=== PATIENT | female | born 1985 | race Caucasian/White ===

== ENCOUNTER 2020-11-20 21:00 | Emergency (ER) | payer BC, SELFPAY ==
[2020-11-20] VITALS (12 sets, daily range): BP systolic 116–133; BP diastolic 65–74; PULSE 73–89; RESP 15–16; TEMP 36.8; O2SAT 97–100; BMI 25.8
[2020-11-20] MEDS: ONDANSETRON 4 MG/2 ML INJ IV (21:27)
[2020-11-20] MEDS: LACTATED RINGERS 1,000 ML 1000 ML IV (21:27)
[2020-11-20 21:42] LABS: Add Manual Diff / Slide Review NO; Basophils Absolute Auto 0 /uL (0-100); Basophils Percent Auto 0.6 % (0-2); Eosinophils Absolute Auto 0 /uL (0-450); Eosinophils Percent Auto 0.8 % (2-4); Hematocrit 36.3 % (36-46); Hemoglobin 11.9 g/dL (12.0-16.0); Lymphocytes Absolute Auto 2600 /uL (1100-4500); Lymphocytes Percent Auto 48.8 % (25-40); Mean Corpuscular HGB Conc 32.7 % (30-36); Mean Corpuscular Volume 85.6 fL (80-100); Monocytes Absolute Auto 800 /uL (0-900); Monocytes Percent Auto 14.6 % (3-14); Neutrophils Absolute Auto 1900 /uL (1500-7000); Neutrophils Percent Auto 35.2 % (50-75); Platelet Count 192 X10^3/uL (150-400); Red Blood Cell Count 4.24 X10^6/uL (4.0-5.2); Red Cell Distribution Width 13.7 % (11.6-14.8); White Blood Cell Count 5.3 X10^3/uL (4.5-11.0)
[2020-11-20 21:49] LABS: Alanine Aminotransferase 16 IU/L (<35); Albumin 4.4 g/dL (3.5-5.0); Alkaline Phosphatase 57 U/L (38-126); Aspartate Aminotransferase 29 IU/L (14-36); Bilirubin Total 0.5 mg/dL (0.2-1.3); Blood Urea Nitrogen 18 mg/dL (7-17); Calcium 9.7 mg/dL (8.4-10.2); Carbon Dioxide 25 mmol/L (22-32); Chloride 107 mmol/L (98-107); Estimated Glomerular Filt Rate > 60.0 mL/min (>60); Globulin 4.4 g/dL (1.7-4.1); Glucose 125 mg/dL (70-100); HEMOLYSIS < 15 (0-50); Magnesium 1.9 mg/dL (1.6-2.3); Potassium 3.8 mmol/L (3.4-5.1); Sodium 139 mmol/L (137-145); Total Protein 8.8 g/dL (6.3-8.2)
--- NOTE | 2020-11-20 22:06 | ED.NAVMDI ---
HPI - Nausea/Vomiting/Diarrhea General Chief complaint: Syncope Stated complaint: nausea,lightheaded,cyst on left ovary Time Seen by Provider: 11/20/20 21:03 Source: patient Mode of arrival: Ambulatory Limitations: no limitations History of Present Illness HPI Narrative: 35-year-old female nonsmoker with history of rheumatoid arthritis and a recently diagnosed left ovarian cyst presents with her significant other and a chief complaint of a relatively sudden onset of near-syncope, severe nausea without vomiting and palpitations. She states that she had been in her normal state of health throughout the course of the day and rather suddenly felt lightheaded with palpitations. She states that it was significantly worse upon standing and improved with rest. She denies any fever chills nor chest pain or shortness of breath. Her menstrual cycle started 2 days ago and is normal for her but it is the 1st 1 in some time as she has had some alterations in her hormone replacement. Related Data Home Medications Medication Instructions Recorded Confirmed conjugated estrogens 0.625 mg 0.625 mg PO DAILY 06/10/20 06/10/20 tablet etanercept 50 mg/mL (1 mL) 50 mg SUBCUT QWEEK 06/10/20 06/10/20 subcutaneous syringe (Enbrel) progesterone micronized 100 mg 100 mg PO QAM 06/10/20 06/10/20 capsule Allergies Allergy/AdvReac Type Severity Reaction Status Date / Time cefaclor [From [facility]] Allergy Verified 06/10/20 18:09 Review of Systems Review of Systems Narrative: GENERAL: Denies chills, fatigue, malaise, fever, sweats. HEENT: Denies sinus pain, ear pain, sore throat, difficulty swallowing, dizziness. RESPIRATORY: Denies dyspnea, cough, wheezing, hemoptysis, sputum. CARDIOVASCULAR: See HPI GASTROINTESTINAL: Denies nausea, vomiting, abdominal pain, diarrhea, constipation, melena. : Denies dysuria, frequency, incontinence, hematuria, urinary retention. MUSCULOSKELETAL: denies weakness, joint pain, or bony pain SKIN: Denies rash, skin lesions, or other NEUROLOGIC: Denies weakness, headache, numbness, change in speech, confusion, seizures, incoordination. PSYCHIATRIC: No concerning psychosocial issues. 12 point review of systems is negative except for those stated above Patient History Medical History No active medical problems Social History Smoking Status: Never smoker Smoking Status: Never smoker alcohol intake frequency: 0-2 drinks per day Alcohol type: beer Substance Use Type: does not use Exam Narrative Exam Narrative: GENERAL: [35] year old patient appears stated age. Well-developed patient, in mild distress. HEAD: Atraumatic. Normocephalic. EYES: Pupils equal round and reactive. Extraocular motions intact. No scleral icterus. No injection or drainage. ENT: Nose without bleeding, purulent drainage. Throat without erythema, tonsillar hypertrophy or exudate. Airway patent. NECK: Trachea midline. Non tender CARDIOVASCULAR: Regular rate and rhythm without murmurs, gallops, or rubs. RESPIRATORY: Clear to auscultation. Breath sounds equal bilaterally. No wheezes, rales, or rhonchi. GASTROINTESTINAL: Abdomen soft, non-tender, nondistended. EXTREMITIES: No edema or joint tenderness. BACK: Nontender without deformity or crepitance. No flank tenderness. NEURO: AOx3. SKIN: No rash or erythema of visible areas Initial Vital Signs Initial Vital Signs: Vital Signs Temperature 98.2 F 11/20/20 21:03 Pulse Rate 88 11/20/20 21:03 Respiratory Rate 16 11/20/20 21:03 Blood Pressure 132/68 11/20/20 21:03 Pulse Oximetry 97 11/20/20 21:03 Course Orders Ordered: ED Orders 11/20/20 21:15 Complete Blood Count AUTO DIFF Stat Comprehensive Metabolic Panel Stat D Dimer Stat Magnesium Stat 11/20/20 22:21 CT angio chest PE protocol Stat Discontinued Medications Lactated Ringer's (Lactated Ringers) 1,000 mls @ 1,000 mls/hr IV BOLUS ONE Stop: 11/20/20 22:20 Last Infusion: 11/20/20 22:56 Dose: 0 mls/hr Documented by: Admin: 11/20/20 21:27 Dose: 1,000 mls/hr Documented by: ATAYLAVTAR Ondansetron HCl (Ondansetron 4 Mg/2 Ml Inj) 4 mg IV NOW ONE Stop: 11/20/20 21:22 Last Admin: 11/20/20 21:27 Dose: 4 mg Documented by: ATAYLOR Ondansetron HCl (Ondansetron 4 Mg Odt Prepack) 1 bottle MISC SEEINSTR ONE Stop: 11/21/20 00:30 Last Admin: 11/21/20 00:45 Dose: 1 bottle Documented by: DERRICK Reevaluation(s) Reevaluation #1: Patient has significant improvement and is essentially asymptomatic at this point after above-stated therapies Time: 22:26 Vital Signs Vital signs: Vital Signs - 8 hr 11/20/20 21:03 11/20/20 21:09 11/20/20 21:30 Temperature 98.2 F Pulse Rate 88 87 81 Pulse Rate [Orthostatic Lying] Pulse Rate [Orthostatic Sitting] Pulse Rate [Orthostatic Standing] Respiratory Rate 16 16 Blood Pressure 132/68 Blood Pressure [Orthostatic Lying] Blood Pressure [Orthostatic Sitting] Blood Pressure [Orthostatic Standing] Pulse Oximetry 97 100 100 11/20/20 21:34 11/20/20 22:00 11/20/20 22:57 Temperature Pulse Rate 78 78 89 Pulse Rate [Orthostatic Lying] Pulse Rate [Orthostatic Sitting] Pulse Rate [Orthostatic Standing] Respiratory Rate 15 16 Blood Pressure 116/67 127/67 Blood Pressure [Orthostatic Lying] Blood Pressure [Orthostatic Sitting] Blood Pressure [Orthostatic Standing] Pulse Oximetry 100 100 100 11/20/20 22:58 11/20/20 23:00 11/20/20 23:30 Temperature Pulse Rate 79 73 74 Pulse Rate [Orthostatic Lying] Pulse Rate [Orthostatic Sitting] Pulse Rate [Orthostatic Standing] Respiratory Rate Blood Pressure 133/74 128/70 124/65 Blood Pressure [Orthostatic Lying] Blood Pressure [Orthostatic Sitting] Blood Pressure [Orthostatic Standing] Pulse Oximetry 100 100 99 11/20/20 23:56 11/20/20 23:58 11/20/20 23:59 Temperature Pulse Rate 75 74 73 Pulse Rate [Orthostatic Lying] Pulse Rate [Orthostatic Sitting] Pulse Rate [Orthostatic Standing] Respiratory Rate Blood Pressure 122/72 127/69 123/67 Blood Pressure [Orthostatic Lying] Blood Pressure [Orthostatic Sitting] Blood Pressure [Orthostatic Standing] Pulse Oximetry 99 100 100 11/21/20 00:00 11/21/20 00:06 11/21/20 00:30 Temperature Pulse Rate 78 69 Pulse Rate [Orthostatic Lying] 74 Pulse Rate [Orthostatic Sitting] 68 Pulse Rate [Orthostatic Standing] 63 Respiratory Rate Blood Pressure 114/68 116/76 Blood Pressure [Orthostatic Lying] 122/72 Blood Pressure [Orthostatic Sitting] 127/69 Blood Pressure [Orthostatic Standing] 123/67 Pulse Oximetry 100 MDM - Nausea/Vomiting/Diarrhea Lab Data Result diagrams: 11/20/20 21:15 11/20/20 21:15 Labs: Lab Results 11/20/20 11/20/20 11/20/20 Range/Units 21:15 21:15 21:15 WBC 5.3 (4.5-11.0) X10^3/uL RBC 4.24 (4.0-5.2) X10^6/uL Hgb 11.9 L (12.0-16.0) g/dL Hct 36.3 (36-46) % MCV 85.6 (80-100) fL MCH 28.0 (26-34) PG MCHC 32.7 (30-36) % RDW 13.7 (11.6-14.8) % Plt Count 192 (150-400) X10^3/uL Neut % (Auto) 35.2 L (50-75) % Lymph % (Auto) 48.8 H (25-40) % [place] % (Auto) 14.6 H (3-14) % Eos % (Auto) 0.8 L (2-4) % Baso % (Auto) 0.6 (0-2) % Neut # (Auto) 1900 (4890-6406) /uL Lymph # (Auto) 2600 (7741-5840) /uL [place] # (Auto) 800 (0-900) /uL Eos # (Auto) 0 (0-450) /uL Baso # (Auto) 0 (0-100) /uL D-Dimer 344 H (<230) ng/mL Sodium 139 (137-145) mmol/L Potassium 3.8 (3.4-5.1) mmol/L Chloride 107 (98-107) mmol/L Carbon Dioxide 25 (22-32) mmol/L BUN 18 H (7-17) mg/dL Creatinine 0.72 (0.52-1.04) mg/dL Estimated GFR > 60.0 (>60) mL/min BUN/Creatinine Ratio 25.0 H (6-22) Glucose 125 H (70-100) mg/dL Calcium 9.7 (8.4-10.2) mg/dL Magnesium 1.9 (1.6-2.3) mg/dL Total Bilirubin 0.5 (0.2-1.3) mg/dL AST 29 (14-36) IU/L ALT 16 (<35) IU/L Alkaline Phosphatase 57 (38-126) U/L Total Protein 8.8 H (6.3-8.2) g/dL Albumin 4.4 (3.5-5.0) g/dL Globulin 4.4 H (1.7-4.1) g/dL Albumin/Globulin Ratio 1.0 (1.0-2.8) Point of Care Testing Test Results Negative Urine Dip Bedside Urine Glucose Negative Bedside Urine Bilirubin - Negative Bedside Urine Ketone - Negative Urine Specific [place] 1.010 Bedside Urine Occult Blood - Negative Bedside Urine pH 6.0 Bedside Urine Protein - Negative Bedside Urine Urobilinogen - Negative Bedside Urine Nitrite - Negative Bedside Urine Leukocytes - Negative Esterase ECG Data Interpretation: EKG is normal sinus rhythm rate [90 ] and free of any signs of ischemia or ectopy. No ST segmental elevation or depression. No T wave inversions MDM Narrative Medical decision making narrative: Multiple diagnoses considered including arrhythmia versus dehydration versus vasovagal versus pulmonary embolism versus anemia. PE thought unlikely given lack of findings on CT angiogram. Electrolyte abnormality and anemia considered unlikely given lack of findings on imaging. Dehydration considered a potential component given improvement with fluids, and initial orthostatic complaint. Return precautions given and questions answered to her apparent satisfaction Discharge Plan Departure Patient Disposition: Home Clinical Impression: Near syncope Instructions: DI for Syncope in Adults (Fainting) Activity Restrictions/Additional Instructions: *You have been diagnosed with [near syncope, likely a combination of dehydration and vagal response. Your physical exam, labs, CT scan and EKG are very reassuring.] *What to do: *Please continue to take your regular medications as directed. [ ] New medication prescriptions sent to your pharmacy: [ ] [ ] New medication written as a paper prescription [x ] No new medications given *Please follow up with your primary care provider in 2-3 days, call for an appointment. Let them know you were seen in the Emergency Department and that we ask that you be seen in follow up. We will electronically transmit a record of today's note if your PCP is in our system *If you do not have a primary care provider please contact the [facility] Resource line at [phone]. They will ask some questions about your medical history and help get you set up with a doctor in the community. *Return to Emergency Department if you should have any new, worsening or concerning symptoms, such as [fever greater than 101 F, shaking chills, worsening pain, persistent vomiting or other bothersome symptoms] Prescriptions: No Action Enbrel 50 mg/mL (1 mL) syringe 50 mg SUBCUT QWEEK RF: 0 progesterone micronized 100 mg capsule 100 mg PO QAM RF: 0 conjugated estrogens 0.625 mg tablet 0.625 mg PO DAILY RF: 0 Referrals: Miscellaneous,Doctor, MD [Primary Care Provider] -
[2020-11-20 22:16] LABS: D Dimer 344 ng/mL (<230)
--- NOTE | 2020-11-20 22:21 | DI.CT.S_ITS ---
PROCEDURE: CT ANGIO CHEST PE PROTOCOL INDICATIONS: palpitations, near syncope, hormone replacement, Ddimer up TECHNIQUE: After the administration of intravenous contrast, 2 mm thick sections acquired from the pulmonary apices to the posterior costophrenic angles. 3-dimensional maximum intensity projection (MIP) coronal and sagittal reformats were then acquired through the thorax. For radiation dose reduction, the following was used: automated exposure control, adjustment of mA and/or kV according to patient size. COMPARISON: None. FINDINGS: Image quality: Excellent. Pulmonary arteries: Pulmonary arteries are normal in size, and demonstrate no intraluminal filling defects to suggest central pulmonary embolism. Lungs and pleura: Atelectasis noted in the dependent portions of the lungs. No pleural effusions or pneumothorax. Central and peripheral airways are patent. Mediastinum: Heart size is normal, without pericardial effusion. No mediastinal or hilar adenopathy. Probable residual thymic tissue. Thoracic aorta is normal in caliber and enhancement. Esophagus is normal in caliber, without hiatal hernia. Bones and chest wall: No suspicious bony lesions. Ribs and thoracic spine appear intact throughout. Thyroid gland is within No axillary or supraclavicular adenopathy. Abdomen: Visualized upper abdominal solid organs appear normal in the early arterial phase of enhancement. IMPRESSION: 1. No pulmonary embolus. 2. No lung consolidation or pleural effusions. Dictated by: Lucy John MD, PhD on 11/21/2020 at 5:43 Approved by: Lucy John MD, PhD on 11/21/2020 at 5:45
--- NOTE | 2020-11-20 22:54 | PC.NURSE ---
Nausea and lightheaded
[2020-11-21] VITALS: BP 114/68; PULSE 78
[2020-11-21 00:06] VITALS: BP 122/72; BP 123/67; BP 127/69; PULSE 63; PULSE 68; PULSE 74
[2020-11-21 00:30] VITALS: BP 116/76; PULSE 69; O2SAT 100
[2020-11-21] MEDS: ONDANSETRON 4 MG ODT PREPACK 1 BOTTLE MISC (00:45)
== END 2020-11-21 00:52 | disposition home or self-care (01) ==
PROVIDERS: Emergency Provider Emergency Medicine
DX: R55 Syncope and collapse (principal); R11.2 Nausea with vomiting, unspecified; R00.2 Palpitations
CPT/HCPCS: 36415; 71275; 80053; 81003; 81025; 83735; 85025; 85379; 93005; 93010; 96361; 96374; 99284; J2405; Q9967

== ENCOUNTER → 2021-05-08 09:43 | Outpatient (CLI) | payer BC, SELFPAY ==
--- NOTE | 2021-05-08 09:46 | DI.MRI.S_ITS ---
PROCEDURE: MR CERVICAL SPINE WO CON INDICATIONS: Cervicalgia TECHNIQUE: Noncontrast sagittal T1 spin echo and T2 fast spin echo, sagittal STIR, foraminal oblique sagittal T2 fast spin echo, and axial gradient echo or T2 fast spin echo through the cervical spine. COMPARISON: None. FINDINGS: Image quality: Excellent. Alignment and Curvature: There is normal bony alignment. Bone Marrow: Marrow demonstrates normal overall signal. Spinal Cord: Visualized spinal cord has normal size and signal. No cerebellar tonsillar herniation. Paraspinous Soft Tissues: No paravertebral masses. Prevertebral soft tissues are normal in thickness. C2-C3: Normal appearance. C3-C4: Disc height is preserved. There is a posterior disc bulge results in mild central stenosis. No foraminal stenosis. C4-C5: Disc height is preserved. There is a focal central disc protrusion which indents the ventral surface of the cord results in moderate central stenosis. No cord edema. No foraminal stenosis C5-C6: Normal appearance. C6-C7: Normal appearance. C7-T1: Normal appearance. IMPRESSION: 1. Central disc protrusion at C4-5 results in moderate central stenosis and indentation of the ventral surface of the cord without cord edema. Approved by: Steve Montejo M.D. on 05/08/2021 at 16:17
== END ==
PROVIDERS: PCP Family Medicine; Referring Provider Family Medicine; Visit Provider Family Medicine
DX: M50.221 Other cervical disc displacement at C4-C5 level (principal); M48.02 Spinal stenosis, cervical region
CPT/HCPCS: 72141

== ENCOUNTER → 2024-09-21 11:31 | Outpatient (CLI) | payer BC, SELFPAY ==
--- NOTE | 2024-09-21 11:32 | DI.RAD.S_ITS ---
PROCEDURE: XR LUMBAR SPINE 2-3V INDICATIONS: Radiculopathy lumbar TECHNIQUE: 3 views of the lumbar spine were acquired. COMPARISON: None. FINDINGS AND IMPRESSION: Vertebral body heights are well maintained. No traumatic subluxation. Mild overall multilevel spondylosis with more significant disc space height loss at L5-S1. No suspicious soft tissue calcifications. If there is high concern for further derangement, consider MRI evaluation. Dictated by: Mert Claudio M.D. on 09/21/2024 at 11:23 Approved by: Mert Claudio M.D. on 09/21/2024 at 11:24
== END ==
PROVIDERS: PCP Family Medicine; Referring Provider Chiropractor; Visit Provider Chiropractor
DX: M47.26 Other spondylosis with radiculopathy, lumbar region (principal); M47.27 Other spondylosis with radiculopathy, lumbosacral region
CPT/HCPCS: 72100

== ENCOUNTER → 2024-09-24 19:36 | Outpatient (CLI) | payer BC, SELFPAY ==
--- NOTE | 2024-09-24 19:38 | DI.MRI.S_ITS ---
PROCEDURE: MR LUMBAR SPINE WO CON INDICATIONS: Lower back pain TECHNIQUE: Noncontrast sagittal T1 spin echo and T2 fast echo, sagittal STIR, and T2 fast spin echo through the lumbar spine. In cases with scoliosis, additional coronal T2 fast spin echo may be performed. COMPARISON: [facility], CR, XR LUMBAR SPINE 2-3V, 09/21/2024, 11:32. FINDINGS: Image quality: Excellent. Alignment and Curvature: Trace retrolisthesis of L2 on L3, L4, L4. Bone Marrow: Marrow is of normal overall signal. Minimal reactive endplate changes are present L3-4 L4-5. No acute vertebral body compression fractures. Spinal Cord: Conus medullaris terminates at the L1 level. Visualized cord demonstrates normal signal and size. Paraspinous Soft Tissues: No paravertebral masses. Discs: Minimal to mild disc desiccation 3 4 through L5-S1. T12-L1: No disc bulge, spinal stenosis or foraminal narrowing. L1-L2: Minimal disc bulge without spinal stenosis or foraminal narrowing. Increased T2 signal is present posteriorly within the disc suggestive of annular fissure Facet and ligamentum flavum hypertrophy as well as epidural lipomatosis is present. L2-L3: Mild disc bulge with mild spinal stenosis. Increased T2 signal is present posteriorly within the disc suggestive annular fissure. No foraminal narrowing. Facet and ligamentum flavum hypertrophy as well as epidural lipomatosis is present. L3-L4: Mild disc bulge with increased T2 signal posteriorly suggestive annular fissure. Mild spinal stenosis. Minimal left foraminal narrowing with facet and ligamentum flavum hypertrophy. Minimal epidural lipomatosis. L4-L5: Mild disc bulge with severe spinal stenosis and canal compression. Moderate bilateral foraminal narrowing with facet and ligamentum per trapeze. L5-S1: Mild disc bulge with superimposed protrusion. Moderate to severe spinal stenosis. Minimal bilateral foraminal narrowing with facet hypertrophy. IMPRESSION: Multilevel disc bulges. Multilevel spinal stenosis most severe at L4-5 and L5-S1 secondary to disc bulge with contributing effect of facet/ligamentum flavum arthropathy. Overall scattered foraminal narrowing most notable at L4-5 secondary to facet arthropathy. Dictated by: Tamar Tse M.D. on 09/24/2024 at 20:14 Approved by: Tamar Tse M.D. on 09/24/2024 at 20:17
== END ==
LOC: MRI 19:37
PROVIDERS: PCP Family Medicine; Referring Provider Family Medicine; Visit Provider Family Medicine
DX: M51.369 Other intervertebral disc degeneration, lumbar region without mention of lumbar back pain or lower extremity pain (principal); M51.27 Other intervertebral disc displacement, lumbosacral region; M47.816 Spondylosis without myelopathy or radiculopathy, lumbar region; M47.817 Spondylosis without myelopathy or radiculopathy, lumbosacral region; M48.061 Spinal stenosis, lumbar region without neurogenic claudication; M48.07 Spinal stenosis, lumbosacral region; M54.9 Dorsalgia, unspecified; R20.0 Anesthesia of skin; R20.2 Paresthesia of skin
CPT/HCPCS: 72148